=== PATIENT | male | born 1975 | race Two or more races ===

== ENCOUNTER 2024-01-02 18:31 | Emergency (ER) | payer OTHER ==
[~2024-01-02] VITALS: Ht 180.3 cm; Wt 101.2 kg
[2024-01-02] MEDS ORDERED: WARFARIN SODIUM5 MG PO (19:04)
[2024-01-02] MEDS ORDERED: LOSARTAN-HCTZ1 EAC2 PO (19:04)
[2024-01-02] MEDS ORDERED: ATORVASTATIN CA20 MG PO (19:05)
[2024-01-02] MEDS ORDERED: METROnidazole 500 MG TABLET (vss) PO ONE (21:00)
[2024-01-02] MEDS ORDERED: HYOSCYAMINE SULFATE 0.125 MG TAB.SUBL SL ONE (21:00)
[2024-01-02] MEDS ORDERED: 0.9 % SODIUM CHLORIDE 1,000 ML IV SCH (21:00)
[2024-01-02 21:11] LABS: HEMATOCRIT 46.6 % (39.0-48.0); HEMOGLOBIN 16.3 g/dL (13-16.00); MEAN CELL VOLUME 86.6 fL (80.0-100.00); MEAN CORPUSCULAR HEMOGLOBIN 30.4 pg (27.00-32.0); MEAN CORPUSCULAR HGB CONC 35.1 g/dl (32.0-36.0); PLATELET COUNT 200 K/uL (150-450); RED BLOOD COUNT 5.38 M/uL (4.00-6.00); RED CELL DISTRIBUTION WIDTH 13.3 % (11.5-14.5)
[2024-01-02 21:30] LABS: ALBUMIN 4.5 gm/dL (3.4-5.0); BILIRUBIN TOTAL 0.69 mg/dL (0.3-1.2); CALCIUM 9.4 mg/dL (8.5-10.1); CREATININE SERUM 0.95 mg/dL (0.70-1.30); GFR 85.35; GLOBULINA 3.7 G/DL (2.4-3.5); POTASSIUM 3.51 mEq/L (3.5-5.1); TOTAL PROTEIN 8.2 gm/dL (6.4-8.2)
[2024-01-02] MEDS ORDERED: ONDANSETRON HCL 2 MG/ML VIAL IV ONE (23:30)
[2024-01-02] MEDS ORDERED: FAMOTIDINE/PF 20 MG/2 ML VIAL IV PUSH ONE (23:45)
== END 2024-01-03 04:35 | disposition home or self-care (01) ==
LOC: ER 18:32
PROVIDERS: Emergency Medicine
DX: K30 Functional dyspepsia (principal); I10 Essential (primary) hypertension; D64.9 Anemia, unspecified